=== PATIENT | female | born 1970 | race Caucasian/White ===

== ENCOUNTER 2022-06-27 08:49 | Outpatient (REF) | payer OTHER, SELFPAY ==
[2022-06-27 11:16] LABS: MANUAL DIFF FLAG NO
[2022-06-27 11:25] LABS: Basophils Absolute Auto 0.1 X10*3/uL (0.0-0.2); Basophils Percent Auto 0.9 % (0-2); Eosinophils Absolute Auto 0.2 X10*3/uL (0.0-0.4); Eosinophils Percent Auto 2.9 % (0-4); Hematocrit 42.2 % (37.0-47.0); Hemoglobin 13.3 g/dl (12.0-16.0); Imm Gran Abs Auto 0.01 X10*3/uL (0.00-0.03); Imm Gran Pct Auto 0.2 % (0.0-0.4); Lymphocytes Absolute Auto 1.2 X10*3/uL (1.2-4.9); Lymphocytes Percent Auto 22.1 % (20-40); Mean Corpuscular HGB Conc 31.5 g/dl (31.0-35.0); Mean Corpuscular Hemoglobin 27.9 pg (27.0-33.0); Mean Corpuscular Volume 88.7 fL (80.0-98.0); Mean Platelet Volume 10.4 fL (9.4-12.3); Monocytes Absolute Auto 0.5 X10*3/uL (0.1-1.2); Monocytes Percent Auto 8.4 % (2-11); Neutrophils Absolute Auto 3.7 x10*3/uL (2.0-8.3); Neutrophils Percent Auto 65.5 % (45-73); Platelet Count 238 X10*3/uL (160-400); Red Blood Count 4.76 X10*6/uL (4.20-5.50); Red Cell Distribution Width 14.2 % (11.0-16.0); White Blood Count 5.6 X10*3/uL (4.8-10.8)
[2022-06-27 12:20] LABS: Alanine Aminotransferase 38 U/L (0-31); Albumin Level 4.3 g/dL (3.5-5.0); Alkaline Phosphatase 129 U/L (39-117); Anion Gap 14 (12-20); Aspartate Amino Transferase 22 U/L (5-31); Bilirubin Total 0.4 mg/dL (0.0-1.0); Blood Urea Nitrogen 13 mg/dL (9-16); C Reactive Protein 0.22 mg/dL (< or = 0.50); Calcium 9.5 mg/dL (8.4-10.2); Carbon Dioxide 25 mmol/L (22-29); Chloride 105 mmol/L (96-108); Estimated Glomerular Filt Rate > 60; Glucose Random 137 mg/dL (60-115); Potassium 4.1 mmol/L (3.3-5.1); Sodium 140 mmol/L (135-145); Total Protein 7.5 g/dL (6.5-8.0)
[2022-06-27 14:39] LABS: Creatinine Urine 99.03 mg/dL; Protein/Creatinine Ratio, Ur 0.08 (<0.2); Total Protein Urine Random 8 mg/dL (<12)
[2022-06-27 16:28] LABS: Erythrocyte Sedimentation Rate 14 MM/HR (0-20)
== END 2022-06-27 08:50 | disposition home or self-care (01) ==
LOC: HO.10HDL 08:49
PROVIDERS: Visit Provider Internal Medicine Rheumatology
DX: I73.00 Raynaud's syndrome without gangrene (principal); R76.8 Other specified abnormal immunological findings in serum
CPT/HCPCS: 36415; 80053; 84156; 85025; 85652; 86140

== ENCOUNTER → 2022-12-27 08:01 | Outpatient (BNVA) | payer OTHER, SELFPAY | PROVIDERS: PCP Internal Medicine; Visit Provider Internal Medicine Rheumatology ==

== ENCOUNTER 2022-12-31 10:20 | Outpatient (REF) | payer OTHER, SELFPAY ==
[2022-12-31 10:45] LABS: MANUAL DIFF FLAG NO
[2022-12-31 11:08] LABS: Basophils Percent Auto 0.7 % (0-2); Eosinophils Absolute Auto 0.1 X10*3/uL (0.0-0.4); Eosinophils Percent Auto 2.2 % (0-4); Hematocrit 40.7 % (37.0-47.0); Hemoglobin 13.1 g/dl (12.0-16.0); Imm Gran Abs Auto 0.02 X10*3/uL (0.00-0.03); Imm Gran Pct Auto 0.3 % (0.0-0.4); Lymphocytes Percent Auto 16.5 % (20-40); Mean Corpuscular HGB Conc 32.2 g/dl (31.0-35.0); Mean Corpuscular Hemoglobin 28.2 pg (27.0-33.0); Mean Corpuscular Volume 87.5 fL (80.0-98.0); Mean Platelet Volume 10.5 fL (9.4-12.3); Monocytes Absolute Auto 0.5 X10*3/uL (0.1-1.2); Monocytes Percent Auto 7.5 % (2-11); Neutrophils Absolute Auto 4.4 x10*3/uL (2.0-8.3); Neutrophils Percent Auto 72.8 % (45-73); Platelet Count 203 X10*3/uL (160-400); Red Blood Count 4.65 X10*6/uL (4.20-5.50); Red Cell Distribution Width 15.1 % (11.0-16.0)
[2022-12-31 11:42] LABS: C Reactive Protein 0.16 mg/dL (< or = 0.50); Estimated Glomerular Filt Rate > 60
[2022-12-31 11:57] LABS: Creatinine Urine 142.81 mg/dL; Protein/Creatinine Ratio, Ur 0.06 (<0.2); Total Protein Urine Random 9 mg/dL (<12)
[2022-12-31 12:42] LABS: Erythrocyte Sedimentation Rate 16 MM/HR (0-20)
[2023-01-02 21:44] LABS: Antibody to SS-A Antigen <1.0 NEG AI (<1.0 NEG); Antibody to SS-B Antigen <1.0 NEG AI (<1.0 NEG)
== END 2022-12-31 10:21 | disposition home or self-care (01) ==
LOC: HO.LAB 10:20
PROVIDERS: PCP Internal Medicine; Visit Provider Internal Medicine Rheumatology
DX: R68.2 Dry mouth, unspecified (principal); R76.8 Other specified abnormal immunological findings in serum
CPT/HCPCS: 36415; 82565; 84156; 85025; 85652; 86140; 86235

== ENCOUNTER 2023-06-28 08:27 | Outpatient (AMB) | payer OTHER, SELFPAY ==
[2023-06-28 08:30] VITALS: BP 100/68; PULSE 78; TEMP 36.3; O2SAT 98; BMI 29.1
--- NOTE | 2023-06-28 08:30 | A.OFFVIS_ITS ---
Intake Vital Signs 06/28/23 08:30 Height 4 ft 11 in Weight 144 lb 2.917 oz BMI 29.1 BP 100/68 Blood Pressure Location Lt brachial Position Sitting Pulse 78 Pulse Source Pulse Oximeter Temp 97.4 F Temp Source Skin Pulse Oximetry (%) 98 Oxygen Delivery Method Room Air Intake Visit Reasons: raynaud's Intake Note: Patient presents today to follow up on Raynaud's. Patient would like to discuss restarting nicardipine. 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 Accompanied by: Self / Same As Patient Allergies No Known Allergies Allergy (Verified 06/28/23 08:30) Medication List - Last Reconciled 06/28/23 by Tae Mancera MD atorvastatin 10 mg PO DAILY blood sugar diagnostic (FreeStyle Lite Strips) As directed cyanocobalamin (vitamin B-12) 1,000 mcg PO DAILY ergocalciferol (vitamin D2) 1,250 mcg PO QWEEK famotidine 20 mg PO BEDTIME flash glucose sensor (FreeStyle Rochelle 14 Day Sensor kit) As directed ibuprofen 800 mg PO Q8H PRN lancets (FreeStyle Lancets) As directed nicardipine 20 mg PO BID nystatin-triamcinolone 100,000-0.1 unit/gram-% topical DAILY PRN HPI HPI Comments History of Present Illness Details 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 This summer, we had tapered her off the nicardipine that we are using for her Raynaud's. In the last few weeks she has noted more color changes in the fingertips with some fingertip paresthesias in both hands. There has also been some pain around a few of the toes. There has been no breakdown or drainage from the skin of the toes. She does take occasional ibuprofen for parotid area discomfort. This was evaluated in ENT and was thought to be some spasm related to her sicca symptoms. She remains on vitamin-D, vitamin B12, and atorvastatin. She does get occasional heartburn and takes famotidine at bedtime which helps that. She had a skin rash on the face treated with topical on oral antibiotics by Dermatology. [facility] Surgical History H/O thumb surgery Hx of cholecystectomy Hx of section Family History Mother Diabetes Hypertension Father FH: prostate cancer Social History Alcohol intake: current Alcohol intake frequency: does not drink Patient Tobacco Use Status: Never used Tobacco Review of Systems Const Details: Negative for appetite change, weight change, fever, chills, malaise and fatigue Eyes Details: Negative for vision change, dry eyes,headaches and dizziness ENT Details: Oral dryness, somewhat helped with Biotene. She also gets pain around the parotids after eating. No swelling of the parotid is appreciated. Negative for hearing change, tinnitus, nose bleeds and oral dryness. Card Details: Negative chest pain, edema and syncope Resp Details: Negative for SOB, cough and wheezing GI Details: Negative indigestion/heartburn, nausea, abdominal pain, bowel changes, diarrhea, constipation and bloody stool. Skin/Breast Details: More frequent Raynaud's symptoms as noted above. Negative for itching, rash, hives, sun sensitivity, and skin cancer Neuro Details: Some intermittent tingling in the fingertips when there is a color change noted. Negative for epilepsy, palsy, stroke, changes in speech, and weakness Endo Details: Negative for polyuria and polydypsia Tony/Lymph Details: Negative for excessive bruising or bleeding. Physical Exam Vital Signs: Last Vital Signs Temp 97.4 F 06/28/23 08:30 Pulse 78 06/28/23 08:30 BP 100/68 06/28/23 08:30 Pulse Ox 98 06/28/23 08:30 Oxygen Delivery Method Room Air 06/28/23 08:30 BMI result Body Mass Index 29.1 APPEARANCE: Patient in no acute distress EYES no redness, pupils equal and reactive to light, eyelids normal EARS:? External ear normal, canal clear and tympanic membrane normal. NOSE/SINUS:? Airflow through both nares, no nasal discharge, no bleeding THROAT:? Oral mucosa moist, no ulcerations NECK:? No thyromegaly or masses, no adenopathy, trachea midline. No parotid tenderness or swelling. HEART:? Regulrar rhythm, S1-S2 heard, no murmurs, rubs or gallops. LUNG:? Clear to percussion and auscultation ABD:? Normal bowel sounds, no organomegaly, masses or tenderness. EXTREMITIES:? No edema, no calf tenderness, normal peripheral pulses. SKIN:? The skin on the face is somewhat shiny with some questionable telangiectasias in the anterior chest area. In the fingertips there is no digital pitting or scaring the evident.? No color change in the fingertips but there is some slight tenderness of the 3rd finger tip in both hands. Similarly there is some purple discoloration of the right 3rd, left 3rd and left 5th toes. The tips of those toes are slightly tender but the there is no break in the skin, drainage, ulceration, or sclerodactyly at present. The left 5th toenail and nail bed does have slight tenderness over the base of the nail bed without any redness or swelling. JOINT EXAM: Normal pain-free range of motion of the joints without tenderness or swelling.?? Results Reviewed Results Reviewed: Laboratory Tests 12/31/22 10:43 WBC 6.0 Hgb 13.1 ESR 16 Creatinine 0.69 C-Reactive Protein 0.16 SS-A/Ro Antibody <1.0 NEG SS-B/La Antibody <1.0 NEG Assessment & Plan Assessment & Plan (1) Dry mouth: Code(s): R68.2 - Dry mouth, unspecified (2) Anticentromere antibodies present: Comment: Raynaud's symptoms Pos RF, NUNU as well - DORIAN negative 06/17: Echocardiogram showed trace mitral regurgitation and tricuspid regurgitation but otherwise was normal. Code(s): R76.8 - Other specified abnormal immunological findings in serum (3) Raynaud's phenomenon without gangrene: Comment: 08/2017: Pos anti-centromere Ab, Neg Scl70 Ab 08/2020 - right 3rd finger ischemia; improving by 09/2020 on nifedipine and sildenafil Code(s): I73.00 - Raynaud's syndrome without gangrene Plan The patient with known anticentromere antibody positivity has more symptoms of the Raynaud's over the past few weeks consistent with the weather being warmer. I think we should restart her nicardipine at 20 mg b.i.d., the dose that was a helpful last year. She does not have any sclerodactyly but there are a few telangiectasias so one could characterize her as having partial CREST.. The oral dryness is consistent with some sicca syndrome although her Sjogren's antibodies were negative. She mostly complains of this spasm of the parotid gland when she eats. We will see if we can increase her salivary production with some pilocarpine, 5 mg up to 4 times a day if tolerated. She will continue with measures to keep her core temperature warm to try to avoid future Raynaud's symptoms. I will recheck CBC, Chem panel and inflammatory markers. A follow-up in 2 months is recommended. Orders: Orders Erythrocyte Sedimentation Rate Today R76.8 - Other specified abnormal immunological findings in serum Complete Blood Count Auto Diff Today R76.8 - Other specified abnormal immunological findings in serum Comprehensive Met. Panel Today R76.8 - Other specified abnormal immunological findings in serum C Reactive Protein Today R76.8 - Other specified abnormal immunological findings in serum Protein Creatinine Ratio, Ur Today R76.8 - Other specified abnormal immunological findings in serum Medications: New pilocarpine HCl 5 mg PO QID 120 tabs 2RF R68.2 - Dry mouth, unspecified Coding Level of Care Code Est Pt Level 4 (34367) Diagnoses Dry mouth R68.2 Anticentromere antibodies present R76.8 Raynaud's phenomenon without gangrene I73.00
== END 2023-06-28 08:58 | disposition home or self-care (01) ==
PROVIDERS: PCP Internal Medicine; Visit Provider Internal Medicine Rheumatology
DX: R68.2 Dry mouth, unspecified (principal); R76.8 Other specified abnormal immunological findings in serum; I73.00 Raynaud's syndrome without gangrene
CPT/HCPCS: 99214

== ENCOUNTER → 2023-06-28 08:27 | Outpatient (BNVA) | payer OTHER, SELFPAY | PROVIDERS: PCP Internal Medicine; Visit Provider Internal Medicine Rheumatology ==

== ENCOUNTER 2023-06-28 09:12 | Outpatient (REF) | payer OTHER, SELFPAY ==
[2023-06-28 10:36] LABS: MANUAL DIFF FLAG NO
[2023-06-28 10:41] LABS: Basophils Absolute Auto 0.1 X10*3/uL (0.0-0.2); Basophils Percent Auto 0.7 % (0-2); Eosinophils Absolute Auto 0.1 X10*3/uL (0.0-0.4); Eosinophils Percent Auto 1.5 % (0-4); Hematocrit 43.6 % (37.0-47.0); Imm Gran Abs Auto 0.02 X10*3/uL (0.00-0.03); Imm Gran Pct Auto 0.3 % (0.0-0.4); Lymphocytes Absolute Auto 1.4 X10*3/uL (1.2-4.9); Lymphocytes Percent Auto 19.5 % (20-40); Mean Corpuscular HGB Conc 32.1 g/dl (31.0-35.0); Mean Corpuscular Volume 87.2 fL (80.0-98.0); Mean Platelet Volume 10.5 fL (9.4-12.3); Monocytes Absolute Auto 0.5 X10*3/uL (0.1-1.2); Monocytes Percent Auto 6.7 % (2-11); Neutrophils Absolute Auto 5.2 x10*3/uL (2.0-8.3); Neutrophils Percent Auto 71.3 % (45-73); Platelet Count 240 X10*3/uL (160-400); Red Cell Distribution Width 14.7 % (11.0-16.0); White Blood Count 7.3 X10*3/uL (4.8-10.8)
[2023-06-28 10:59] LABS: Alanine Aminotransferase 29 U/L (0-31); Albumin Level 4.4 g/dL (3.5-5.0); Alkaline Phosphatase 118 U/L (39-117); Anion Gap 10 (12-20); Aspartate Amino Transferase 20 U/L (5-31); Bilirubin Total 0.5 mg/dL (0.0-1.0); Blood Urea Nitrogen 14 mg/dL (9-16); C Reactive Protein 0.29 mg/dL (< or = 0.50); Calcium 9.4 mg/dL (8.4-10.2); Carbon Dioxide 27 mmol/L (22-29); Chloride 106 mmol/L (96-108); Estimated Glomerular Filt Rate > 60; Glucose Random 115 mg/dL (60-115); Sodium 139 mmol/L (135-145)
[2023-06-28 11:09] LABS: Creatinine Urine 137.45 mg/dL; Protein/Creatinine Ratio, Ur 0.06 (<0.2); Total Protein Urine Random 8 mg/dL (<12)
[2023-06-28 11:26] LABS: Erythrocyte Sedimentation Rate 12 MM/HR (0-20)
== END 2023-06-28 09:13 | disposition home or self-care (01) ==
LOC: HO.10HDL 09:12
PROVIDERS: Visit Provider Internal Medicine Rheumatology
DX: R76.8 Other specified abnormal immunological findings in serum (principal)
CPT/HCPCS: 36415; 80053; 82570; 84156; 85025; 85652; 86140

== ENCOUNTER 2023-09-08 08:49 | Outpatient (AMB) | payer OTHER, SELFPAY ==
[2023-09-08 08:54] VITALS: BP 112/66; PULSE 62; TEMP 36.5; O2SAT 96; BMI 29.2
--- NOTE | 2023-09-08 08:54 | A.OFFVIS_ITS ---
Intake Vital Signs 09/08/23 08:54 Height 4 ft 11 in Weight 144 lb 9.972 oz BMI 29.2 BP 112/66 Blood Pressure Location Rt brachial Position Sitting Pulse 62 Pulse Source Pulse Oximeter Temp 97.7 F Temp Source Skin Pulse Oximetry (%) 96 Oxygen Delivery Method Room Air Intake Visit Reasons: Raynauds/crest with inpatient nursing aide Intake Note: Patient last seen 06/28/[address] Mancera, presents today for follow up and test results. Denies recent surgery or hospitalizations. After reviewing meds she states she thinks she's been taking her meds wrong. Disease Case Manager Rn Required: No Accompanied by: Self / Same As Patient Allergies No Known Allergies Allergy (Verified 09/08/23 08:59) Medication List - Last Reconciled 09/08/23 by MARVA Miranda-BERNARDINO atorvastatin 10 mg PO DAILY blood sugar diagnostic (FreeStyle Lite Strips) As directed cyanocobalamin (vitamin B-12) 1,000 mcg PO DAILY ergocalciferol (vitamin D2) 1,250 mcg PO QWEEK famotidine 20 mg PO BEDTIME flash glucose sensor (FreeStyle Rochelle 14 Day Sensor kit) As directed ibuprofen 800 mg PO Q8H PRN lancets (FreeStyle Lancets) As directed nicardipine 20 mg PO BID nystatin-triamcinolone 100,000-0.1 unit/gram-% topical DAILY PRN pilocarpine HCl 5 mg PO QID HPI HPI Comments History of Present Illness Details Ms. 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 She is taking nicardipine 5mg once per day, Famotidine for GERD when she thinks she needs. She did not start Pilocarpine 5mg QID as she was not aware the prescription was sent. She has not notice frequent color changes in the fingertips but still does have some fingertip paresthesias in both hands. Mild pain continues to a few of the toes. There has been no breakdown or drainage from the skin of the toes. She does take occasional ibuprofen for parotid area discomfort. This was evaluated in ENT and was thought to be some spasm related to her sicca symptoms. She remains on vitamin-D, vitamin B12, and atorvastatin. She does get occasional heartburn and takes famotidine at bedtime which helps that. She had a skin rash on the face which is now resolved. It was treated with topical and was on oral antibiotics by Dermatology. [facility] Medical History (Updated 09/08/23 @ 09:27 by RADU Miranda) CREST (calcinosis, Raynaud's phenomenon, esophageal dysfunction, sclerodactyly, telangiectasia) Surgical History H/O thumb surgery Hx of cholecystectomy Hx of section Family History Mother Diabetes Hypertension Father FH: prostate cancer Social History Alcohol intake: current Alcohol intake frequency: does not drink Patient Tobacco Use Status: Never used Tobacco Review of Systems Const All systems reviewed & are unremarkable except as noted in HPI and below Physical Exam Vital Signs: Last Vital Signs Temp 97.7 F 09/08/23 08:54 Pulse 62 09/08/23 08:54 BP 112/66 09/08/23 08:54 Pulse Ox 96 09/08/23 08:54 Oxygen Delivery Method Room Air 09/08/23 08:54 BMI result Body Mass Index 29.2 APPEARANCE: Patient in no acute distress EYES no redness, pupils equal and reactive to light, eyelids normal EARS:? External ear normal, canal clear and tympanic membrane normal. NOSE/SINUS:? Airflow through both nares, no nasal discharge, no bleeding THROAT:? Oral mucosa moist, no ulcerations NECK:? No thyromegaly or masses, no adenopathy, trachea midline. No parotid tenderness or swelling. HEART:? Regular rhythm, S1-S2 heard, no murmurs, rubs or gallops. LUNG:? Clear to percussion and auscultation ABD:? Normal bowel sounds, no organomegaly, masses or tenderness. EXTREMITIES:? No edema, no calf tenderness, normal peripheral pulses. SKIN:? The skin on the face is somewhat shiny with some questionable telangiectasias in the anterior chest area. In the fingertips there is no digital pitting or scaring evident.? No color change in the fingertips but there is some slight tenderness of the 3rd finger tip in both hands. Similarly there is some purple discoloration of the right 3rd, left 2nd and left 5th toes. The tips of those toes are slightly tender but the there is no break in the skin, drainage, ulceration at present. The left 5th toenail and nail bed does have slight tenderness over the base of the nail bed without any redness or swelling. The skin on her fingers are tight and patient describes that they are very stiff, especially in the mornings and she constantly is opening and closing her palms to get relief. There is a fibrosis/thickening of the skin on her right lateral forearm that she says she has notice in 2019 or 2020. Results Reviewed Results Reviewed: Laboratory Tests 06/28/23 09:20 WBC 7.3 RBC 5.00 Hgb 14.0 ESR 12 BUN 14 Creatinine 0.69 Estimated GFR > 60 AST 20 ALT 29 C-Reactive Protein 0.29 U Random Total Protein 8 Urine Creatinine 137.45 Protein/Creatinin Ratio 0.06 Assessment & Plan Assessment & Plan (1) Dry mouth: Code(s): R68.2 - Dry mouth, unspecified (2) Anticentromere antibodies present: Comment: Raynaud's symptoms Pos RF, NUNU as well - DORIAN negative 06/17: Echocardiogram showed trace mitral regurgitation and tricuspid regurgitation but otherwise was normal. Code(s): R76.8 - Other specified abnormal immunological findings in serum (3) Raynaud's phenomenon without gangrene: Comment: 08/2017: Pos anti-centromere Ab, Neg Scl70 Ab 08/2020 - right 3rd finger ischemia; improving by 09/2020 on nifedipine and sildenafil Code(s): I73.00 - Raynaud's syndrome without gangrene (4) CREST (calcinosis, Raynaud's phenomenon, esophageal dysfunction, sclerodactyly, telangiectasia): Code(s): M34.1 - CR(E)ST syndrome Plan #CREST: The patient has Raynaudi's, Esophageal involvment(GERD), sclerodactyly and Talengiactasia. She has known anticentromere antibody positivity. She has been doing well with managing the Raynaud's and the medicine that were added at the last visit has worked. She was restart her nicardipine at 20 mg b.i.d., since the dose that was a helpful in 2021. However, mistakenly did 20mg once daily and had no issues so we will stay at once daily. She will continue with measures to keep her core temperature warm to try to avoid future Raynaud's symptoms for the remainder of the cold season. The Raynaud's has been the more prevalent of the symptoms but there is certainly evidence that the disease may be progressing and that other features exist. She does have sclerodactyly - her fingers are definitely stiff, skin tight and shining and there is some progr ession to the dorsum of her hands. She also now has onset of acid reflux and so one wonders if the esophagus in being affected, though she denies dysphagia. The patient denies SOB with normal activity or difficulty breathing when lying down. Given the fibrosis of her hands and forearm, I think it is reasonable to start Hydroxychloroquine 200mg Qd to start, and also to obtain an endoscopic evaluati on from GI to evaluate further. #SICCA: The oral dryness is consistent with some sicca syndrome although her Sjogren's antibodies were negative. She mostly complains of this spasm of the parotid gland when she eats. We had prescribed pilocarpine, 5 mg up to 4 times a day if tolerated at the 05/2023 visit, but patient was not aware and did not start. 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 She did start using the Biotene mouth wash and lozenges as recommended. #Care Home Use: I discussed the potential side effects of HCQ, more commonly diarrhea. Patient will alert the office with any concerns. We will start HCQ 200mg QD and if tolerable increase to BID. Discussed with patient the required monitoring of CBC and eyes on HCQ. She will obtain an eye exam in the near future for a baseline. A follow-up in 2 months is recommended. I spent 40 mins reviewing chart, evaluating patient, documenting. Orders: Orders Complete Blood Count Auto Diff 3 Months Z79.899 - Other [facility] (current) drug therapy Referrals Gastroenterology Referral K21.9 - Gastro-esophageal reflux disease without esophagitis, M34.1 - CR(E)ST syndrome Medications: New hydroxychloroquine 200 mg PO DAILY 90 tabs 0RF Sclerodactyly M34.1 - CR(E)ST syndrome, R76.8 - Other specified abnormal immunological findings in serum Changed From pilocarpine HCl 5 mg PO QID 120 tabs 2RF R68.2 - Dry mouth, unspecified To pilocarpine HCl 5 mg PO QID R68.2 - Dry mouth, unspecified Coding Level of Care Code Est Pt Level 4 (00630) Diagnoses Dry mouth R68.2 Anticentromere antibodies present R76.8 Raynaud's phenomenon without gangrene I73.00 CREST (calcinosis, Raynaud's phenomenon, esophageal dysfunction, sclerodactyly, telangiectasia) M34.1
== END 2023-09-08 09:33 | disposition home or self-care (01) ==
PROVIDERS: PCP Internal Medicine; Visit Provider Nurse Practitioner Family
DX: R68.2 Dry mouth, unspecified (principal); R76.8 Other specified abnormal immunological findings in serum; I73.00 Raynaud's syndrome without gangrene; M34.1 CR(E)ST syndrome
CPT/HCPCS: 99214

== ENCOUNTER → 2023-09-08 08:49 | Outpatient (BNVA) | payer OTHER, SELFPAY | PROVIDERS: PCP Internal Medicine; Visit Provider Nurse Practitioner Family ==